=== PATIENT | female | born 1975 | race Caucasian/White ===

== ENCOUNTER 2021-04-10 10:16 | Inpatient (IN) ==
[2021-04-10 10:53] LABS: Venous Bicarbonate HCO3 16.1 mmol/L (24-28)
[2021-04-10 11:05] LABS: ABS Lymphocytes 0.4 10^3/ul (1.0-4.8); ABS Monocytes 0.2 10^3/ul (0-0.8); ABS Neutrophils 6.9 10^3/ul (1.5-7.7); Hematocrit 47 % (35-47); Hemoglobin 16.1 g/dL (12.0-16.0); Lymphocyte % 5.3 %; Mean Corpuscular HGB Conc 34 g/dL (31-36); Mean Corpuscular Hemoglobin 29 pg (27-31); Mean Corpuscular Volume 85 fL (80-97); Mean Platelet Volume 9.5 fL (7.4-10.4); Nucleated Red Blood Cells % 0.1; Platelet Count 121 10^3/uL (150-450); Red Blood Count 5.55 10^6 /uL (3.70-4.87); Red Cell Distribution Width 13 % (10-15); White Blood Count 7.5 10^3/uL (3.5-10.8)
[2021-04-10] MEDS ORDERED: Lactated Ringers 1000 ml BAG 1,000 ML IV ONE (11:07)
[2021-04-10] MEDS ORDERED: Remdesivir 100 mg Vial 200 MG in NS 0.9% 250 ml 210 ML IV ONE (11:19)
[2021-04-10 11:20] LABS: Activated Partial Thrombo Time 27.6 seconds (26.0-38.0); INR 1.03 (0.86-1.15)
[2021-04-10 11:33] LABS: Albumin 3.7 g/dL (3.2-5.2); Albumin/Globulin Ratio 0.9 (1-3); C Reactive Protein 185.99 mg/L (<8.01); Calcium 8.6 mg/dL (8.6-10.3); Globulin 3.9 g/dL (2-4); Potassium 4.1 mmol/L (3.5-5.0); Total Bilirubin 0.5 mg/dL (0.2-1.0); Total Protein 7.6 g/dL (6.4-8.9)
[2021-04-10 11:36] LABS: Troponin I 0.01 ng/mL (<0.03)
[2021-04-10 11:37] LABS: Influenza A Molecular Negative (Negative); Influenza B Molecular Negative (Negative)
[2021-04-10 11:53] LABS: Ferritin 627.6 ng/mL (11-307)
[2021-04-10] MEDS ORDERED: NS 0.9% 250 ml 250 ML ONE (12:12)
[2021-04-10 12:17] LABS: Rapid COVID-19 Molecular Detected (Undetected)
[2021-04-10] MEDS ORDERED: Dextrose 50% Syringe 50 ml 25 GM/50 ML SYRINGE IV PUSH PRN ×2 (12:19→18:41)
[2021-04-10] MEDS ORDERED: Insulin GLARGINE 100 un/ml 10 ml VIAL SUBCUT ONE ×2 (12:19→18:44)
[2021-04-10] MEDS: methylPREDNISolone SOD 40 mg/ml 1 ml VIAL IV SCH (12:20)
[2021-04-10 12:32] LABS: Rapid Strep Molecular Negative (Negative)
[2021-04-10] MEDS ORDERED: Potassium Chloride IV 20 MEQ in Lactated Ringers 1000 ml BAG 1,000 ML IVPB SCH (13:00)
[2021-04-10] MEDS ORDERED: Tocilizumab 200 MG/10 ML 10 ml VIAL IVPB ONE (13:39)
[2021-04-10] MEDS ORDERED: Tocilizumab** 800 MG in NS 0.9% 100 ml BAG 60 ML IVPB ONE (15:00)
[2021-04-10] MEDS: Enoxaparin 40 MG/0.4 ML SYR SUBCUT SCH (16:25)
[2021-04-10 16:59] LABS: Calcium 8.5 mg/dL (8.6-10.3); Potassium 4.1 mmol/L (3.5-5.0)
[2021-04-10 20:53] LABS: Calcium 8.3 mg/dL (8.6-10.3); Potassium 4.1 mmol/L (3.5-5.0)
[2021-04-11] MEDS: methylPREDNISolone SOD 40 mg/ml 1 ml VIAL IV SCH ×2 (00:24→12:57)
[2021-04-11 04:47] LABS: ABS Lymphocytes 0.7 10^3/ul (1.0-4.8); ABS Monocytes 0.3 10^3/ul (0-0.8); ABS Neutrophils 6.4 10^3/ul (1.5-7.7); Hematocrit 42 % (35-47); Hemoglobin 14.4 g/dL (12.0-16.0); Mean Corpuscular HGB Conc 35 g/dL (31-36); Mean Corpuscular Hemoglobin 29 pg (27-31); Mean Corpuscular Volume 84 fL (80-97); Mean Platelet Volume 9.3 fL (7.4-10.4); Platelet Count 134 10^3/uL (150-450); Red Blood Count 4.95 10^6 /uL (3.70-4.87); Red Cell Distribution Width 13 % (10-15); White Blood Count 7.4 10^3/uL (3.5-10.8)
[2021-04-11 05:05] LABS: Albumin 3.1 g/dL (3.2-5.2); Albumin/Globulin Ratio 0.9 (1-3); Calcium 8.5 mg/dL (8.6-10.3); Globulin 3.6 g/dL (2-4); Magnesium 2.2 mg/dL (1.9-2.7); Phosphorus 2.1 mg/dL (2.5-5.0); Potassium 3.9 mmol/L (3.5-5.0); Total Bilirubin 0.4 mg/dL (0.2-1.0); Total Protein 6.7 g/dL (6.4-8.9)
[2021-04-11] MEDS: ZINC 50 MG PO SCH (08:53)
[2021-04-11] MEDS ORDERED: Insulin GLARGINE 100 un/ml 10 ml VIAL SUBCUT SCH (09:00)
[2021-04-11] MEDS: Remdesivir 100 mg Vial 100 MG in NS 0.9% 250 ml 230 ML IV SCH (09:44)
[2021-04-11 12:10] LABS: Urine Appearance Cloudy; Urine Bilirubin Negative (Negative); Urine Blood Negative (Negative); Urine Color Yellow; Urine Glucose 3+(>=500 mg/dL) (Negative); Urine Ketones 2+ (Negative); Urine Nitrite Negative (Negative); Urine Protein 1+(30 mg/dL) (Negative); Urine Specific Gravity 1.032 (1.002-1.030); Urine Urobilinogen Negative (Negative)
[2021-04-11 12:11] LABS: Urine Bacteria Absent (Absent); Urine Red Blood Cell 1+(3-5/hpf) (Absent); Urine Squamous Epithelial Cell Present (Absent); Urine White Blood Cell 1+(6-10/hpf) (Absent)
[2021-04-11] MEDS: cefTRIAXone 1 gm/50 mL NS BAG 1 GM/50 ML BAG IVPB SCH (16:35)
[2021-04-11] MEDS: Enoxaparin 40 MG/0.4 ML SYR SUBCUT SCH (16:49)
[2021-04-11] MEDS: Insulin GLARGINE 100 un/ml 10 ml VIAL SUBCUT SCH (19:45)
[2021-04-11] MEDS ORDERED: Acetaminophen IV 1 GM/100ML 100 ML IV ONE (22:33)
[2021-04-12] MEDS: methylPREDNISolone SOD 40 mg/ml 1 ml VIAL IV SCH ×3 (00:07→23:43)
[2021-04-12 04:02] LABS: Hematocrit 42 % (35-47); Hemoglobin 14.5 g/dL (12.0-16.0); Mean Corpuscular HGB Conc 35 g/dL (31-36); Mean Corpuscular Hemoglobin 29 pg (27-31); Mean Corpuscular Volume 82 fL (80-97); Mean Platelet Volume 9.9 fL (7.4-10.4); Platelet Count 161 10^3/uL (150-450); Red Blood Count 5.03 10^6 /uL (3.70-4.87); Red Cell Distribution Width 13 % (10-15); White Blood Count 10.1 10^3/uL (3.5-10.8)
[2021-04-12 04:12] LABS: CO2 Carbon Dioxide 22 mmol/L (22-32); Calcium 8.2 mg/dL (8.6-10.3); Chloride 106 mmol/L (101-111); Sodium 137 mmol/L (135-145)
[2021-04-12 04:18] LABS: Blood Urea Nitrogen 16 mg/dL (6-24); Glucose 228 mg/dL (70-100)
[2021-04-12 04:26] LABS: ABS Lymphocytes 0.6 10^3/ul (1.0-4.8); ABS Monocytes 0.5 10^3/ul (0-0.8); Eosinophil % 0.1 %; Lymphocyte % 6.1 %
[2021-04-12 04:40] LABS: Anion Gap 9 mmol/L (2-11)
[2021-04-12 06:31] LABS: Potassium 3.5 mmol/L (3.5-5.0)
[2021-04-12] MEDS ORDERED: Potassium Chloride LIQUID 20 MEQ/15 ML LIQUID PO ONE (07:32)
[2021-04-12] MEDS: Insulin GLARGINE 100 un/ml 10 ml VIAL SUBCUT SCH ×2 (08:51→20:56)
[2021-04-12] MEDS: ZINC 50 MG PO SCH (08:52)
[2021-04-12] MEDS: Remdesivir 100 mg Vial 100 MG in NS 0.9% 250 ml 230 ML IV SCH (09:14)
[2021-04-12 09:47] LABS: Magnesium 2.2 mg/dL (1.9-2.7); Phosphorus 2.8 mg/dL (2.5-5.0)
[2021-04-12] MEDS: Albuterol HFA INHALER 8 gm MDI INH PRN (15:55)
[2021-04-12] MEDS: cefTRIAXone 1 gm/50 mL NS BAG 1 GM/50 ML BAG IVPB SCH (16:07)
[2021-04-12] MEDS: Enoxaparin 40 MG/0.4 ML SYR SUBCUT SCH (16:25)
[2021-04-13 06:18] LABS: Hematocrit 47 % (35-47); Mean Corpuscular HGB Conc 34 g/dL (31-36); Mean Corpuscular Hemoglobin 29 pg (27-31); Mean Corpuscular Volume 84 fL (80-97); Mean Platelet Volume 9.5 fL (7.4-10.4); Platelet Count 165 10^3/uL (150-450); Red Blood Count 5.57 10^6 /uL (3.70-4.87); Red Cell Distribution Width 13 % (10-15); White Blood Count 8.9 10^3/uL (3.5-10.8)
[2021-04-13 06:47] LABS: Calcium 8.4 mg/dL (8.6-10.3); Magnesium 2.3 mg/dL (1.9-2.7); Phosphorus 3.8 mg/dL (2.5-5.0); Potassium 4.1 mmol/L (3.5-5.0)
[2021-04-13 07:15] LABS: ABS Lymphocytes 0.6 10^3/ul (1.0-4.8); ABS Monocytes 0.6 10^3/ul (0-0.8); ABS Neutrophils 7.6 10^3/ul (1.5-7.7); Nucleated Red Blood Cells % 0.1
[2021-04-13] MEDS: ZINC 50 MG PO SCH (08:11)
[2021-04-13] MEDS: Insulin GLARGINE 100 un/ml 10 ml VIAL SUBCUT SCH ×2 (08:11→20:20)
[2021-04-13] MEDS: Remdesivir 100 mg Vial 100 MG in NS 0.9% 250 ml 230 ML IV SCH (10:22)
[2021-04-13] MEDS: methylPREDNISolone SOD 40 mg/ml 1 ml VIAL IV SCH ×2 (11:11→23:42)
[2021-04-13] MEDS: Acetylcysteine 600mgCAP(RENAL) PO SCH ×2 (11:30→20:24)
[2021-04-13] MEDS: cefTRIAXone 1 gm/50 mL NS BAG 1 GM/50 ML BAG IVPB SCH (16:09)
[2021-04-13] MEDS: Enoxaparin 40 MG/0.4 ML SYR SUBCUT SCH (16:37)
[2021-04-14 05:06] LABS: Hematocrit 44 % (35-47); Hemoglobin 15.3 g/dL (12.0-16.0); Mean Corpuscular HGB Conc 35 g/dL (31-36); Mean Corpuscular Hemoglobin 29 pg (27-31); Mean Corpuscular Volume 84 fL (80-97); Mean Platelet Volume 9.3 fL (7.4-10.4); Platelet Count 155 10^3/uL (150-450); Red Blood Count 5.29 10^6 /uL (3.70-4.87); Red Cell Distribution Width 13 % (10-15); White Blood Count 8.6 10^3/uL (3.5-10.8)
[2021-04-14 05:53] LABS: ABS Lymphocytes 0.6 10^3/ul (1.0-4.8); ABS Monocytes 0.5 10^3/ul (0-0.8); ABS Neutrophils 7.4 10^3/ul (1.5-7.7); Lymphocyte % 7.2 %; Nucleated Red Blood Cells % 0.1
[2021-04-14] MEDS: Insulin GLARGINE 100 un/ml 10 ml VIAL SUBCUT SCH ×2 (08:26→20:55)
[2021-04-14] MEDS: Acetylcysteine 600mgCAP(RENAL) PO SCH ×2 (08:27→20:54)
[2021-04-14] MEDS: ZINC 50 MG PO SCH (08:58)
[2021-04-14] MEDS: Albuterol HFA INHALER 8 gm MDI INH PRN (09:05)
[2021-04-14] MEDS: Remdesivir 100 mg Vial 100 MG in NS 0.9% 250 ml 230 ML IV SCH ×2 (09:39→09:41)
[2021-04-14] MEDS: methylPREDNISolone SOD 40 mg/ml 1 ml VIAL IV SCH (12:43)
[2021-04-14] MEDS: Enoxaparin 40 MG/0.4 ML SYR SUBCUT SCH (16:08)
[2021-04-14] MEDS: cefTRIAXone 1 gm/50 mL NS BAG 1 GM/50 ML BAG IVPB SCH (16:23)
[2021-04-15 05:45] LABS: Blood Urea Nitrogen 14 mg/dL (6-24); CO2 Carbon Dioxide 28 mmol/L (22-32); Calcium 8.3 mg/dL (8.6-10.3); Chloride 99 mmol/L (101-111); Glucose 285 mg/dL (70-100); Magnesium 2.2 mg/dL (1.9-2.7); Sodium 135 mmol/L (135-145)
[2021-04-15 05:57] LABS: Anion Gap 8 mmol/L (2-11)
[2021-04-15] MEDS: Acetylcysteine 600mgCAP(RENAL) PO SCH ×2 (08:49→20:13)
[2021-04-15] MEDS ORDERED: Insulin GLARGINE 100 un/ml 10 ml VIAL SUBCUT SCH ×2 (09:00→21:00)
[2021-04-15] MEDS: ZINC 50 MG PO SCH (09:06)
[2021-04-15 09:36] LABS: Potassium Redraw 3.8 mmol/L (3.5-5.0)
[2021-04-15] MEDS: Enoxaparin 40 MG/0.4 ML SYR SUBCUT SCH (16:43)
[2021-04-15] MEDS: cefTRIAXone 1 gm/50 mL NS BAG 1 GM/50 ML BAG IVPB SCH (16:59)
[2021-04-16 06:20] LABS: Calcium 8.6 mg/dL (8.6-10.3)
[2021-04-16 08:52] LABS: Magnesium 2.2 mg/dL (1.9-2.7)
[2021-04-16 08:57] LABS: Phosphorus 4.4 mg/dL (2.5-5.0)
[2021-04-16] MEDS: Acetylcysteine 600mgCAP(RENAL) PO SCH ×2 (09:19→21:22)
[2021-04-16] MEDS: Insulin GLARGINE 100 un/ml 10 ml VIAL SUBCUT SCH ×2 (09:23→21:23)
[2021-04-16 12:44] LABS: Glucose Confirmatory 450 mg/dL (70-100)
[2021-04-16] MEDS: Enoxaparin 40 MG/0.4 ML SYR SUBCUT SCH (16:10)
[2021-04-17 05:33] LABS: CO2 Carbon Dioxide 30 mmol/L (22-32); Calcium 8.3 mg/dL (8.6-10.3); Chloride 98 mmol/L (101-111); Sodium 134 mmol/L (135-145)
[2021-04-17 05:35] LABS: Anion Gap 6 mmol/L (2-11)
[2021-04-17 05:39] LABS: Blood Urea Nitrogen 13 mg/dL (6-24); Glucose 256 mg/dL (70-100)
[2021-04-17 06:07] LABS: Magnesium 2.1 mg/dL (1.9-2.7); Phosphorus 3.9 mg/dL (2.5-5.0); Potassium Redraw 3.9 mmol/L (3.5-5.0)
[2021-04-17] MEDS: Acetylcysteine 600mgCAP(RENAL) PO SCH ×2 (08:49→22:35)
[2021-04-17] MEDS: Insulin GLARGINE 100 un/ml 10 ml VIAL SUBCUT SCH ×2 (09:05→22:06)
[2021-04-17] MEDS: Enoxaparin 40 MG/0.4 ML SYR SUBCUT SCH (14:00)
[2021-04-17] MEDS ORDERED: Dextrose 50% Syringe 50 ml 25 GM/50 ML SYRINGE IV PUSH PRN (22:20)
[2021-04-18 07:34] LABS: Hematocrit 46 % (35-47); Mean Corpuscular HGB Conc 35 g/dL (31-36); Mean Corpuscular Hemoglobin 29 pg (27-31); Mean Corpuscular Volume 84 fL (80-97); Platelet Count 170 10^3/uL (150-450); Red Blood Count 5.47 10^6 /uL (3.70-4.87); Red Cell Distribution Width 13 % (10-15); White Blood Count 11.9 10^3/uL (3.5-10.8)
[2021-04-18 07:36] LABS: ABS Basophils 0.1 10^3/ul (0-0.2); ABS Eosinophils 0.2 10^3/ul (0-0.6); ABS Lymphocytes 2.1 10^3/ul (1.0-4.8); ABS Monocytes 1.2 10^3/ul (0-0.8); ABS Neutrophils 8.4 10^3/ul (1.5-7.7); Eosinophil % 1.7 %; Lymphocyte % 17.5 %
[2021-04-18 07:50] LABS: Calcium 9.3 mg/dL (8.6-10.3); Magnesium 2.2 mg/dL (1.9-2.7); Phosphorus 4.6 mg/dL (2.5-5.0)
[2021-04-18 08:04] LABS: Potassium 5.1 mmol/L (3.5-5.0)
[2021-04-18] MEDS: Acetylcysteine 600mgCAP(RENAL) PO SCH ×2 (08:56→20:42)
[2021-04-18] MEDS: Insulin GLARGINE 100 un/ml 10 ml VIAL SUBCUT SCH ×2 (08:57→20:45)
[2021-04-18] MEDS: Enoxaparin 40 MG/0.4 ML SYR SUBCUT SCH (17:01)
[2021-04-19] MEDS: Insulin GLARGINE 100 un/ml 10 ml VIAL SUBCUT SCH ×2 (08:36→22:12)
[2021-04-19] MEDS: Acetylcysteine 600mgCAP(RENAL) PO SCH ×2 (08:40→20:30)
[2021-04-19] MEDS: Enoxaparin 40 MG/0.4 ML SYR SUBCUT SCH (15:40)
[2021-04-20] MEDS: Acetylcysteine 600mgCAP(RENAL) PO SCH (08:29)
[2021-04-20] MEDS: Insulin GLARGINE 100 un/ml 10 ml VIAL SUBCUT SCH (08:30)
[2021-04-20 08:39] VITALS: BP 133/94
== END 2021-04-20 12:15 | disposition home or self-care (01) | DRG 137 ==
LOC: ED 10:16 → ICU 10:24 → EDHOLD 11:12 → SUATTDRO 11:12 → ICU 12:13 → MED 04-17 18:17
PROVIDERS: ADMIT Internal Medicine; ATTEND Internal Medicine